=== PATIENT | female | born 1970 | race American Indian/Alaskan Native ===

== ENCOUNTER 2017-12-13 06:25 | Emergency (ER) | payer SELFPAY ==
[2017-12-13 06:41] VITALS: BP 126/92
[2017-12-13] MEDS ORDERED: MOTRIN PO ONE (06:54)
--- NOTE | 2017-12-13 07:16 | XRay Report ---
FINAL REPORT EXAM: XR SPINE CERVICAL 2-3V HISTORY: pain in neck TECHNIQUE: Three views of the cervical spine were obtained. FINDINGS: There is straightening of the usual cervical lordosis secondary to patient positioning versus spasm. There is pzmr-me-kseujcgr narrowing of the C4-C5 and C5-C6 disc with anterior osteophytes. The alignment appears normal. The prevertebral soft tissues and C1-C2 articulation appear intact. IMPRESSION: Olzs-ti-ietxnjhx disc degeneration at the C4-C5 and C5-C6 levels endplate spurring. Straightening of the usual cervical lordosis secondary to patient positioning versus spasm.
[2017-12-13 08:48] LABS: Basophils % (Auto) 0.6 % (0.0-1.8); Eosinophils # (Auto) 0.1 K/mm3 (0.0-0.4); Eosinophils % (Auto) 1.9 % (0.0-4.3); Hematocrit 38.4 % (30.3-42.9); Hemoglobin 12.4 gm/dl (10.1-14.3); Lymphocytes # (Auto) 1.9 K/mm3 (1.2-5.4); Lymphocytes % (Auto) 31.8 % (13.4-35.0); Mean Corpuscular HGB Conc 32 % (30-34); Mean Corpuscular Hemoglobin 28 pg (28-32); Mean Corpuscular Volume 86 fl (79-97); Monocytes # (Auto) 0.5 K/mm3 (0.0-0.8); Monocytes % (Auto) 8.5 % (0.0-7.3); Platelet Count 279 K/mm3 (140-440); Red Blood Count 4.49 M/mm3 (3.65-5.03); Red Cell Distribution Width 14.4 % (13.2-15.2)
[2017-12-13 09:07] LABS: BUN/Creatinine Ratio 13; Blood Urea Nitrogen 9 mg/dL (7-17); Calcium 8.9 mg/dL (8.4-10.2); Hemolysis Index 5
== END 2017-12-13 09:35 | disposition left against medical advice (07) ==
LOC: ED 06:25
DX: R20.0 Anesthesia of skin (principal); R60.0 Localized edema; Z53.21 Procedure and treatment not carried out due to patient leaving prior to being seen by health care provider; M54.2 Cervicalgia
CPT/HCPCS: 36415; 72040; 80048; 85025